=== PATIENT | female | born 1980 ===

== ENCOUNTER 2017-07-09 14:32 | Emergency (ER) | payer SELFPAY ==
[2017-07-09 14:32] VITALS: BMI 25.4
[2017-07-09 14:40] VITALS: BP 126/61; PULSE 81; RESP 16; TEMP 97.2; O2SAT 98
--- NOTE | 2017-07-09 16:01 | ED PDOC ---
HPI: Back Time Seen by Provider: 07/09/17 15:30 Chief Complaint (Nursing): Back Pain Chief Complaint (Provider): Back Pain History Per: Patient History/Exam Limitations: no limitations Onset/Duration Of Symptoms: Mins, Hrs Current Symptoms Are (Timing): Still Present Quality Of Discomfort: "Pain" Pain Scale Rating Of: 8 Previous Symptoms: None Additional Complaint(s): Michelle Gifford, a 37 year old female, presents to the ED complaining of back pain. The patient reports that today while at work she she fell hitting her back and head. She states that she did not lose consciousness. Denies dizziness , vomiting, nausea, change in speech, memory, numbness, tingling. PMD: FAMILY PROVIDER,NO Past Medical History Reviewed: Historical Data, Nursing Documentation, Vital Signs Vital Signs: Last Vital Signs Temp 97.2 F L 07/09/17 14:38 Pulse 81 07/09/17 14:38 Resp 16 07/09/17 14:38 BP 126/61 07/09/17 14:38 Pulse Ox 98 07/09/17 14:38 - Medical History PMH: No Chronic Diseases - Surgical History Surgical History: (x3) - Family History Family History: States: Unknown Family Hx - Living Arrangements Living Arrangements: With Family - Social History Current smoker - smoking cessation education provided: No Ex-Smoker (has not smoked in the last 12 months): No Alcohol: None Drugs: Denies - Home Medications Home Medications: Ambulatory Orders Medication Instructions Recorded Acetaminophen [Tylenol 325mg tab] 650 mg PO Q4 PRN #30 tab 05/04/16 Ciprofloxacin [Cipro] 500 mg PO BID #14 tab 05/04/16 Acetaminophen [Tylenol 325mg tab] 650 mg PO Q4 #30 tab 07/09/17 Cyclobenzaprine [Cyclobenzaprine 10 mg PO BID #14 tab 07/09/17 HCl] - Allergies Allergies/Adverse Reactions: Allergies Allergy/AdvReac Type Severity Reaction Status Date / Time No Known Allergies Allergy Verified 05/04/16 11:33 Review of Systems ROS Statement: Except As Marked, All Systems Reviewed And Found Negative Gastrointestinal: Negative for: Nausea, Vomiting Musculoskeletal: Positive for: Back Pain Neurological: Negative for: Numbness, Dizziness Physical Exam - Reviewed Nursing Documentation Reviewed: Yes Vital Signs Reviewed: Yes - Physical Exam Appears: Positive for: Non-toxic, No Acute Distress Head Exam: Positive for: ATRAUMATIC, NORMAL INSPECTION, NORMOCEPHALIC Skin: Positive for: Normal Color, Warm, Dry. Negative for: Rash Eye Exam: Positive for: Normal appearance, EOMI, PERRL. Negative for: Nystagmus Neck: Positive for: Normal (No C-spine tenderness), Painless ROM, Supple Cardiovascular/Chest: Positive for: Regular Rate, Rhythm, Chest Non Tender. Negative for: Tachycardia Respiratory: Positive for: Normal Breath Sounds. Negative for: Wheezing, Respiratory Distress Back: Positive for: Muscle Spasm (lumbar paravertebral spasm). Negative for: Normal Inspection, L CVA Tenderness, R CVA Tenderness Neurologic/Psych: Positive for: Alert, duty officer II-XII (cranial nerves intact), Oriented, Cerebellar Tests (cerebellar tests are normal), Gait. Negative for: Motor/Sensory Deficits - ECG O2 Sat by Pulse Oximetry: 98 (RA) Pulse Ox Interpretation: Normal Medical Decision Making Medical Decision Makin Initial Impression 37 y/o female presenting with back pain Initial Plan: * Tylenol 650mg PO * Flexeril 10 mg PO * Reevaluation Patient was advised to take neurological precautions for the next 3 days. Scribe Attestation Documented by Aparna Barrios acting as a scribe for Sherlyn Chen PA-C. MD Scribe Attestation All medical record entries made by the Scribe were at my direction and personally dictated by me. I have reviewed the chart and agree that the record accurately reflects my personal performance of the history, physical exam, medical decision making, and the department course for this patient. I have also personally directed, reviewed, and agree with the discharge instructions and disposition. Disposition - Clinical Impression Clinical Impression: Fall with injury, Back injury, Head injury Counseled Patient/Family Regarding: Rx Given - Disposition [facility]errals: [facility] [Outside] Disposition: Routine/Home Disposition Time: 16:16 Condition: STABLE Prescriptions: Acetaminophen [Tylenol 325mg tab] 650 mg PO Q4 #30 tab Cyclobenzaprine [Cyclobenzaprine HCl] 10 mg PO BID #14 tab Instructions: Concussion (ED), Head Injury (ED) Forms: [facility] [employer] [facility] (Japanese), [facility] ED School/Work Excuse Print Language: NIGERIEN - POA Present On Arrival: None
== END 2017-07-09 16:17 | disposition home or self-care (01) ==
LOC: H.ER 14:32
DX: S09.90XA Unspecified injury of head, initial encounter (principal); S39.92XA Unspecified injury of lower back, initial encounter; W19.XXXA Unspecified fall, initial encounter; Y99.0 Civilian activity done for income or pay